=== PATIENT | male | born 1975 | race Two or more races ===

== ENCOUNTER → 2017-07-25 | Outpatient (CLI) | payer OTHER | END | disposition home or self-care (01) | LOC: CFH 09:20 | PROVIDERS: ATTEND Registered Nurse | DX: M51.24 Other intervertebral disc displacement, thoracic region (principal) | CPT/HCPCS: 72146; 72148 ==

== ENCOUNTER → 2018-01-02 | Outpatient (CLI) | payer OTHER | END | disposition home or self-care (01) | LOC: RAD 10:42 | PROVIDERS: ATTEND Internal Medicine | DX: R20.2 Paresthesia of skin (principal); R51 Headache | CPT/HCPCS: 70551 ==